=== PATIENT | female | born 1965 | race Caucasian/White ===

== ENCOUNTER 2017-12-08 11:48 | Day surgery (SDC) | payer OTHER ==
[~2017-12-08 11:48] MED LIST: Buffered Lidocaine 0.9% SYRIN* 5 ML/SYR SYRINGE INTRADERM ONE
[2017-12-08] MEDS ORDERED: fentaNYL* 50 MCG/ML 2 ML VIAL (100 MCG VIAL) ONE (13:23)
[2017-12-08] MEDS ORDERED: Midazolam* 1 MG/ML 10 ML VIAL (10 MG) ONE (13:24)
--- NOTE | 2017-12-08 14:46 | PRO ---
DATE: 12/08/2017. REFERRING PHYSICIAN: Dotty Fernandez* PROCEDURE: Colonoscopy and ileoscopy with removal of six polypoid lesions, three via cold snare in the right colon and three via biopsy in the rectum. INDICATION: This 52-year-old woman comes in following up on prior colon polyp removals. She had a third attempted colonoscopy that was too uncomfortable and she has been referred for anesthesia assistance. She is followed several times a year by Dr Fernandez because of diabetes. Informed consent was obtained with an opportunity for questions, special concerns, and a travel discussion. ENDOSCOPIST: Jameel Valdovinos ANESTHESIOLOGIST: John Hill FINDINGS: She is a substantially overweight, middle-aged woman in no distress. Her abdomen is obese, soft and nontender. Rectal is normal. Initial views show an excellent prep and normal mucosa. The scope advances easily through the rectum, rectosigmoid, and then sigmoid and descending are quite loopy. Additional Propofol was given. A loop was withdrawn twice and the right colon was reached. A moderate number of diverticuli were seen with no erythema or scarring or distorsion of the left colon. The cecum, ileocecal valve and 15 cm of terminal ileum were normal. In retroflexion, a mid right colon polyp, about 6 mm, was seen and amputated with a non-electrified snare and suction retrieved. From a straight on position, a proximal right colon and ileocecal lesion, 4.5 and 3.5 mm respectively, were similarly removed with the colon snare and suction retrieved. Further withdraw views showed no other abnormality in the transverse, descending or sigmoid. Slow painstaking technique was used in the sigmoid. In the proximal rectum or rectosigmoid, a diminutive polypoid nodule was removed with jumbo forceps. Behind the second rectal fold, there was another 4 mm polypoid nodule removed with jumbo forceps, and then finally in the distal rectum at about 6 cm, a diminutive, 2.5 to 3 mm, nodule was removed with jumbo forceps. Rectal retroflexion itself was unremarkable. IMPRESSION: 1. Redundant colon. 2. Mild Left Diverticulosis Addendum: 3 TAs from right; 3 hypers from rectosig f/u 4 yrs 3. Colon polyps - six - Follow-up interval to be determined [id number]/[facility] #: [id number] [facility]
[2017-12-08 15:31] VITALS: BP 119/71
== END 2017-12-08 16:07 | disposition home or self-care (01) ==
LOC: OR 11:48
PROVIDERS: ATTEND Internal Medicine Gastroenterology
DX: Z12.11 Encounter for screening for malignant neoplasm of colon (principal); K63.5 Polyp of colon; K62.1 Rectal polyp; Z86.010 Personal history of colon polyps; E11.9 Type 2 diabetes mellitus without complications; Z79.84 Long term (current) use of oral hypoglycemic drugs; D50.9 Iron deficiency anemia, unspecified; E66.9 Obesity, unspecified; J98.4 Other disorders of lung; Q43.8 Other specified congenital malformations of intestine
CPT/HCPCS: 81025; 88305; J2250; J3010